=== PATIENT | male | born 1975 | race Caucasian/White ===

== ENCOUNTER → 2020-01-13 | Outpatient (CLI) | payer OTHER ==
--- NOTE | 2020-01-13 15:00 | KCIC ---
3 views left knee without comparison for left knee pain for a couple of months, no known injury. FINDINGS: There is no fracture, dislocation, or acute osseous abnormality identified. No suprapatellar joint effusion. No significant degenerative changes. IMPRESSION: 1. No acute osseous abnormality. Electronically signed by: Dwayne Aguilar MD (01/13/2020 2:57 PM) [id number]
== END | disposition home or self-care (01) ==
LOC: KCIC 14:08
PROVIDERS: ATTEND Nurse Practitioner Family
DX: M25.562 Pain in left knee (principal)
CPT/HCPCS: 73562